=== PATIENT | male | born 1995 | race Two or more races ===

== ENCOUNTER 2017-01-24 06:54 | Day surgery (SDC) | payer BC ==
--- NOTE | ~2017-01-24 | OP ---
Record Of Operation [facility] [address] [place]. [address] NAME: ROSA SOL : 89 STATUS : [facility] PAT#: [id number] AGE: 21 ADM/REG DATE : 01/24/17 MR#: [id number] REPORT SERV DATE: 01/24/17 DICTATED BY: BERNARD WARREN DATE: 01/24/17 REPORT STATUS : Draft TRANSCRIBED BY: MODL DATE: 01/24/17 DATE OF PROCEDURE: 01/24/2017 PREOPERATIVE DIAGNOSIS: Incarcerated right inguinal hernia. POSTOPERATIVE DIAGNOSIS: Incarcerated indirect right inguinal hernia. PROCEDURE: Robotic incarcerated indirect right inguinal hernia repair with mesh. ANESTHESIA: General. SURGEON: Bernard Warren M.D. INFORMATION ASSURANCE ENGINEER: Bobo. COMPLICATIONS: None. DRAINS: None. ESTIMATED BLOOD LOSS: 20 mL. FINDINGS: 1. The patient was noted to have an incarcerated indirect right inguinal hernia. 2. The patient had no evidence of left inguinal hernia. OPERATIVE TECHNIQUE: The patient was brought to the operating room, placed on the table in supine position. He voided prior to the procedure and he had preoperative IV antibiotics. He underwent general endotracheal anesthesia, and was prepped and draped in sterile fashion and time-out was completed. Local anesthesia was instilled to the supraumbilical skin in the midline and a Veress needle was inserted and 15 mm of pneumoperitoneum was obtained. An Optiview 12 mm trocar was then inserted into the abdomen under direct visualization and there was no evidence of any Veress or trocar injury. He was then placed in Trendelenburg and two 8 mm lateral right and left mid upper abdominal trocars were placed under direct visualization in the midclavicular line. The robot was then brought to the patient's bedside and docked. The peritoneum above and lateral to the anterior iliac spine was then scored and divided toward the median umbilical ligament that was identified and preserved. Blunt dissection then ensued medially in the preperitoneal space, total Darwin's ligament, iliopubic tract, and transversus arch were identified. The dissection continued over the inferior epigastric vessels. There were identified and preserved throughout the procedure and laterally to iliopubic tract and transversus arch. The peritoneum was then dissected carefully out of the deep ring using blunt dissection until it was completely reduced several centimeters proximal to where the vas joined the neurovascular structures of the cord. The cord neurovascular structures were identified and preserved throughout the procedure. After the hernia sac was reduced, the peritoneum was elevated and there was no evidence of any other hernias. The appropriate mesh had previously been folded with a suture in place and positioned at the time of trocar placement in left and the right lower Record Of Operation [address] [place]. [address] NAME: ROSA SOL : 89 STATUS : [facility] PAT#: [id number] AGE: 21 ADM/REG DATE : 01/24/17 MR#: [id number] REPORT SERV DATE: 01/24/17 DICTATED BY: BERNARD WARREN DATE: 01/24/17 REPORT STATUS : Draft TRANSCRIBED BY: KIKO DATE: 01/24/17 quadrant. It was then positioned with extension to the left side of midline due to the size of the mesh in the patient's size. It was then unfolded carefully and cover the entire defective space in the right groin. It was position from 1 to 2 cm below the Darwin's ligament and past the midline and completely unfolded and stuck to the surface. There was no peritoneum near the placement of the mesh and at this point after it was adequately deployed the peritoneum was then reapproximated after the pneumoperitoneum was reduced with a running V-Loc suture. The suture passer was then used to close the 12 mm trocar site and all the instruments and trocars were then removed as the pneumoperitoneum was aspirated. The anterior fascia at the supraumbilical port was also reapproximated using a figure-of- eight Vicryl suture. The skin edges were reapproximated using absorbable subcuticular Monocryl sutures and Dermabond was applied. He was extubated and taken to the recovery room in stable condition. All sponge needle counts reported correct. LENORA/KIKO Bernard Warren M.D. / [id number] CC: Bernard Warren M.D. Rodrigo Jara MD
[~2017-01-24 06:54] MED LIST: *DENIES
== END 2017-01-24 15:11 | disposition home or self-care (01) ==
LOC: SDC 06:54
PROVIDERS: Surgery
PROC: 0YU50JZ Supplement Right Inguinal Region with Synthetic Substitute, Open Approach (ICD-10-PCS; principal; 2017-01-24 07:00)
DX: K40.30 Unilateral inguinal hernia, with obstruction, without gangrene, not specified as recurrent (principal)
CPT/HCPCS: A9270-GY; C1781; J0690; J2250; J2405; J2710; J3010